=== PATIENT | female | born 1995 | race Caucasian/White ===

== ENCOUNTER 2017-08-16 15:39 | Emergency (ER) | payer OTHER ==
[~2017-08-16] VITALS: Ht 162.6 cm; Wt 108.9 kg
[2017-08-16] MEDS ORDERED: MEDROLDOSEPACK PO (17:21)
[2017-08-16 17:36] VITALS: BP 143/82
== END 2017-08-16 17:38 | disposition home or self-care (01) ==
LOC: M.ERS 15:39
DX: J04.0 Acute laryngitis (principal)

== ENCOUNTER 2017-11-08 12:01 | Emergency (ER) | payer OTHER ==
[~2017-11-08] VITALS: Ht 162.6 cm; Wt 113.4 kg
[~2017-11-08 12:01] MED LIST: MEDROLDOSEPACK PO
[2017-11-08] MEDS ORDERED: NORCO 5-325 TA1 EAC1 PO (12:58)
[2017-11-08 13:19] VITALS: BP 146/100
== END 2017-11-08 13:20 | disposition home or self-care (01) ==
LOC: M.ERS 12:01
DX: S92.354A Nondisplaced fracture of fifth metatarsal bone, right foot, initial encounter for closed fracture (principal); X50.1XXA Overexertion from prolonged static or awkward postures, initial encounter; Y93.89 Activity, other specified; Y92.89 Other specified places as the place of occurrence of the external cause; Y99.8 Other external cause status